=== PATIENT | male | born 1950 | race Caucasian/White ===

== ENCOUNTER → 2021-04-13 | Outpatient (CLI) | payer MEDICARE, OTHER ==
[~2021-04-13] MED LIST: ASPIRIN EC81 MG PO; AUGMENTIN 875-1 EACH PO; BASAGLAR K100 UNIT/1 SQ; CRESTOR10 MG PO; ESOMEPRAZOLE MA40 MG PO; JANUMET 50-1,01 EACH PO; LISINOPRIL10 MG PO; MELOXICAM15 MG PO; METOPROLOL PO; NORCO 5-325 TA1 EACH PO; ROPINIROLE HCL0.5 MG PO; ROPINIROLE HCL2 MG PO; TYLENOL 325MG325 MG PO
== END ==
LOC: HEART 5 08:43
DX: I25.119 Atherosclerotic heart disease of native coronary artery with unspecified angina pectoris (principal); R94.39 Abnormal result of other cardiovascular function study
CPT/HCPCS: 78452; A9502; J2785